=== PATIENT | male | born 1955 | race Caucasian/White ===

== ENCOUNTER 2020-11-19 11:19 | Emergency (ER) | payer MEDICARE, SELFPAY | END 2020-11-19 11:35 | disposition left against medical advice (07) | LOC: EXPBETH 11:24 | PROVIDERS: Emergency Provider Nurse Practitioner Family | DX: Z53.21 Procedure and treatment not carried out due to patient leaving prior to being seen by health care provider (principal) | CPT/HCPCS: 99199 ==